=== PATIENT | male | born 1970 | race Caucasian/White ===

== ENCOUNTER 2021-02-06 13:16 | Outpatient (CLI) | payer OTHER, SELFPAY ==
[2021-02-06 13:25] VITALS: BP 148/105; PULSE 99; RESP 18; TEMP 36.7; O2SAT 95; BMI 31.5
[2021-02-06 13:50] VITALS: BP 145/94; PULSE 79; RESP 18; O2SAT 97
[2021-02-06 14:50] VITALS: BP 149/107; PULSE 83; RESP 18; TEMP 36.7; O2SAT 98
== END 2021-02-06 13:17 | disposition home or self-care (01) ==
LOC: OPS 13:18
PROVIDERS: Visit Provider Nurse Practitioner
DX: U07.1 COVID-19 (principal)
CPT/HCPCS: 96365

== ENCOUNTER 2024-03-30 14:06 | Emergency (ER) | payer OTHER, SELFPAY ==
[2024-03-30 14:09] VITALS: BP 163/97; PULSE 99; TEMP 36.7; O2SAT 97; BMI 28.4
--- NOTE | 2024-03-30 15:12 | XRR_ITS ---
PROCEDURE INFORMATION: Exam: XR Left Knee Exam date and time: 03/30/2024 3:36 PM Age: 54 years old Clinical indication: Injury or trauma; Other: Laceration/chainsaw; Patella or knee; Left; Foreign body involvement not specified TECHNIQUE: Imaging protocol: Radiologic exam of the left knee. Views: 3 views. COMPARISON: DX XR tibia fibula LT 2V [id number] 06/08/2017 6:14 PM FINDINGS: Bones/joints: No acute fracture or dislocation. Bones and joint spaces within normal limits. Soft tissues: No foreign body evident. XR/XR knee LT 3V* [id number] IMPRESSION: No acute pathology.
--- NOTE | 2024-03-30 15:53 | ED_ITS ---
HPI - Wound/Laceration General: Chief Complaint: Wound/Laceration Stated Complaint: laceration to knee / Chainsaw Time Seen by Provider: 03/30/24 15:53 History of Present Illness: 54-year-old male presents emergency room after chainsaw accident which he injured his left knee. Using a chainsaw and kicked back him just above the left knee. He has still been able to bear weight on it. Draining. He is unsure of his last tetanus shot. No recent illness. Associated symptoms: Denies chills or fever(s) Related Data Previous Rx's Medication Instructions Recorded amoxicillin 500 mg-potassium 1 tab PO BID #10 tabs 03/30/24 clavulanate 125 mg tablet (Augmentin) hydrocodone 5 mg-acetaminophen 325 1 tab PO Q6H PRN pain #10 tabs 03/30/24 mg tablet mupirocin 2 % topical ointment 1 applic topical BID #22 grams 03/30/24 Allergies Allergy/AdvReac Type Severity Reaction Status Date / Time No Known Allergies Allergy Verified 03/30/24 14:17 Review of Systems Const: Denies: fever(s) or chills Card: Denies: chest pain Resp: Denies: dyspnea GI: Denies: abdominal pain : Denies: dysuria, urinary frequency or urinary urgency Musc: Denies: neck pain or back pain Skin/Breast: Denies: rash Physical Exam Const: COMMON NORMALS: no acute distress GENERAL APPEARANCE: cooperative and comfortable ORIENTATION/CONSCIOUSNESS: Yes awake, Yes oriented to person, Yes oriented to place and Yes oriented to time HENMT: COMMON NORMALS: normocephalic, atraumatic and hearing grossly normal bilaterally HEAD & SCALP: normocephalic and atraumatic Resp: COMMON NORMALS: normal respiratory effort, No retractions, No use of accessory muscles and clear to auscultation bilaterally AUSCULTATION: clear to auscultation bilaterally Cardio: COMMON NORMALS: regular rate, regular rhythm and No murmurs present (Cardio) RATE: regular rate RHYTHM: regular rhythm Extremity: OTHER: Large irregular skin defect angled above the patella on the left leg laterally. The edges are irregular and roughened. Neuro: SENSORIUM/ORIENTATION: Yes oriented to person, Yes oriented to place and Yes oriented to time Skin: COMMON NORMALS: no rashes or lesions noted GENERAL SKIN EXAM: no rashes or lesions noted Procedures Laceration Laceration 1: Site: lower extremity Size (cm): 8 Description: linear and irregular Depth: simple, single layer Local Anesthetic: lidocaine 1% and with epi Amount of anesthesia used (mL): 10 Pre-repair: wound explored, irrigated extensively, deep structures intact and wound margins revised Skin layer closed with: nylon Size (cm): 3-0 Number of sutures: 1 Technique: running Course Vital Signs: Vital signs: Vital Signs Temperature 98.1 F 03/30/24 14:09 Pulse Rate 99 03/30/24 14:09 Blood Pressure 163/97 03/30/24 14:09 Pulse Oximetry 97 03/30/24 14:09 Oxygen Delivery Me thod Room Air 03/30/24 14:09 MDM - Wound/Laceration Medical Decision Making Tetanus updated patient given a gram of Ancef. Wound revised and then closed with running locking sutures. Will discharge patient home have him follow-up with primary care to have sutures removed in approximately 14 days wound care instructions given. Lab Data Radiology Impressions Knee X-Ray 03/30/24 15:12 IMPRESSION: No acute pathology. All radiology interpretation(s) finalized by discharge Discharge Plan Discharge Patient Disposition: Home Clinical Impression: Laceration Condition: Stable Prescriptions: New hydrocodone-acetaminophen 5-325 mg tablet 1 tab PO Q6H PRN (Reason: pain) Qty: 10 0RF mupirocin 2 % ointment 1 applic topical BID Qty: 22 0RF amoxicillin-pot clavulanate [Augmentin] 500-125 mg tablet 1 tab PO BID Qty: 10 0RF Discharge Orders: Discharge ED (Routine); Ordered 03/30/24 Ordered By: Vickey Rutherford Discharge Diet: Usual diet Discharge Activity: Increase activity as tolerated Patient Instructions: Laceration (ED), Opioid Safety, Pain Management Activity Restrictions/Additional Instructions: Thank you for choosing [facility] for your healthcare needs today. It is very important that you follow up as instructed or [facility] should you have concerns or if your condition changes or worsens in any way. You were seen in the emergency room after laceration. Wound was closed sutures should be removed in approximately 14 days apply topical antibiotic to the wound until it is healed. You are given co topical antibiotic ointment pain medications and a 5-day course of oral antibiotics. Coding Level of Care Code ED Cigarette Maker for Lucia Morris
--- NOTE | 2024-03-30 16:05 | PC.PHAR ---
Pt states is no longer taking any medications. Family in the room questioned that answer and pt denied taking any medications in over a month. Removed from chart are the following: Citalopram 10mg daily last fill 10/25/23 90ds, Prilosec 40mg daily last fill 10/25/23 90ds, and Sildenafil 50mg prn last fill 10/25/23 10ds.
[2024-03-30] MEDS: ceFAZolin 1,000 mg SDV 1000 MG IVP (16:36)
[2024-03-30] MEDS: tetanus-dipt-pertussis 0.5 mL SDV IM (16:36)
[2024-03-30] MEDS: lidocaine-epi 1% 20 mL INJ INJECTION (16:39)
== END 2024-03-30 17:59 | disposition home or self-care (01) ==
PROVIDERS: Emergency Provider Family Medicine
DX: S81.012A Laceration without foreign body, left knee, initial encounter (principal); W29.3XXA Contact with powered garden and outdoor hand tools and machinery, initial encounter
CPT/HCPCS: 12034; 73562; 90471; 90715; 96374; 99284; J0690